=== PATIENT | female | born 1955 | race Caucasian/White ===

== ENCOUNTER 2021-08-19 19:28 | Emergency (ER) | payer MEDICARE ==
[2021-08-19 21:30] LABS: BASOPHIL 0.5 % (0-2); EOSINOPHIL 1.1 % (0-7); HCT 42.6 % (37.0-47.0); HGB 13.5 g/dl (12.5-16.0); LYMPHOCYTE 28.5 % (15-48); MCH 30.7 pg (25.0-31.0); MCHC 31.7 g/dL (32.0-36.0); MCV 96.8 fL (78.0-100.0); MONOCYTE 6.3 % (0-12); MPV 8.7 fL (6.0-9.5); NEUTROPHIL 63.4 % (41-80); NRBC 0; PLT 177 K/uL (150-400); RDW 12.6 % (11.5-14.0); WBC 8.1 K/uL (4.0-10.5)
[2021-08-19 21:43] LABS: INR 1.03 (0.9-1.2); PROTHROMBIN TIME 12.9 SECONDS (11.8-13.4)
[2021-08-19 21:50] LABS: ALBUMIN 3.7 g/dL (3.4-5.0); BILIRUBIN - TOTAL 0.2 mg/dL (0.2-1.0); BUN/CREAT RATIO (CALC) 19.3 RATIO; CREATININE 0.88 mg/dL (0.51-0.95); POTASSIUM 3.4 mmol/L (3.5-5.1); TOTAL PROTEIN 6.7 g/dL (6.4-8.2)
[2021-08-20] MEDS ORDERED: NORCO 5-325 TA1 EACH PO (01:18)
== END 2021-08-20 01:37 | disposition home or self-care (01) ==
LOC: FER 19:28
PROVIDERS: Emergency Medicine
DX: S22.42XA Multiple fractures of ribs, left side, initial encounter for closed fracture (principal); Z88.1 Allergy status to other antibiotic agents; Z88.8 Allergy status to other drugs, medicaments and biological substances; W01.0XXA Fall on same level from slipping, tripping and stumbling without subsequent striking against object, initial encounter; Y92.009 Unspecified place in unspecified non-institutional (private) residence as the place of occurrence of the external cause
CPT/HCPCS: 36415; 70450; 71260; 72125; 72128; 72131; 80053; 83690; 85025; 85610; 93005; 94010; J1885; J2270; Q9967